=== PATIENT | female | born 1990 | race American Indian/Alaskan Native ===

== ENCOUNTER 2021-01-16 18:56 | Emergency (ER) | payer MEDICAID, MEDICARE ==
[2021-01-16 22:00] VITALS: BP 117/68
[2021-01-16 23:39] LABS: Basophils # (Auto) 0.1 K/mm3 (0.0-0.1); Basophils % (Auto) 0.8 % (0.0-1.8); Eosinophils # (Auto) 0.1 K/mm3 (0.0-0.4); Eosinophils % (Auto) 1.7 % (0.0-4.3); Hematocrit 38.3 % (30.3-42.9); Hemoglobin 13.1 gm/dl (10.1-14.3); Lymphocytes # (Auto) 2.9 K/mm3 (1.2-5.4); Lymphocytes % (Auto) 40.5 % (13.4-35.0); Mean Corpuscular HGB Conc 34 % (30-34); Mean Corpuscular Volume 88 fl (79-97); Monocytes # (Auto) 0.5 K/mm3 (0.0-0.8); Monocytes % (Auto) 6.8 % (0.0-7.3); Platelet Count 277 K/mm3 (140-440); Red Blood Count 4.37 M/mm3 (3.65-5.03); Red Cell Distribution Width 14.3 % (13.2-15.2)
[2021-01-16 23:58] LABS: Bilirubin,Urine NEG (Negative); Blood,Urine LG (Negative); Color,Urine Yellow (Yellow); Mucus,Urine FEW /HPF; Protein,Urine <15 mg/dL mg/dL (Negative); Urobilinogen,Urine < 2.0 mg/dL (<2.0)
[2021-01-17 00:02] LABS: Alanine Aminotransferase 15 units/L (7-56); Blood Urea Nitrogen 6 mg/dL (7-17); Calcium 8.8 mg/dL (8.4-10.2); Hemolysis Index 10
[2021-01-17 00:07] LABS: Amphetamine Screen,Urine PRESUMPTIVE NEGATIVE; Benzodiazepines Screen,Urine PRESUMPTIVE NEGATIVE; Cannabinoid Screen,Urine PRESUMPTIVE POSITIVE; Cocaine Screen,Urine PRESUMPTIVE NEGATIVE; Methadone Screen,Urine PRESUMPTIVE NEGATIVE; Opiate Screen,Urine PRESUMPTIVE NEGATIVE
[2021-01-17 00:21] LABS: BUN/Creatinine Ratio 10
--- NOTE | 2021-01-17 00:53 | Emergency Department Report ---
ED Medical Clearance HPI - General Chief complaint: Medical Clearance Stated complaint: LAB WORK FOR MEDICAL CLEARENCE ONLY Time Seen by Provider: 01/16/21 23:08 Source: patient Mode of arrival: Ambulatory - History of Present Illness Initial comments: 28-year-old [place]kin[place] female with past medical history of PTSD, manic depression, bipolar disorder presents emergency department seeking readmission and to review blood work. Patient was just released on January 12 and when she got onto her family felt that she may need to be admitted again for secondary treatment. Ms. Barnett reports that they had gone through the [facility]olds and had agreed but she presents to the ED for medical clearance. MD Complaint: medical clearance request -: Gradual Reason for Medical Clearance: psychiatric condition Alledged Intoxication: No Compliant with Home Medications: No Traumatic Symptoms: denies traumatic injury Home medications: Home Medications Medication Instructions Recorded Confirmed Last Taken Bentyl 70 mg PO QID 09/19/18 09/19/18 09/19/18 Gabapentin 600 mg PO TID 09/19/18 09/19/18 09/19/18 Zoloft 100 mg PO DAILY 09/19/18 09/19/18 09/19/18 Previous Rx's Medication Instructions Recorded Last Taken Type HYDROcodone/ACETAMINOPHEN [Lortab 473 ml PO TID PRN 7 Days #100 09/19/18 Unknown Rx 10 mg-300 mg per 15 ML ORAL LIQ] solution Omeprazole/Sodium Bicarbonate 1 each PO DAILY 30 Days #30 capsule 09/19/18 Unknown Rx [Omeprazole-Bicarb 20-1,100 Cap] Allergies/Adverse reactions: Allergies Allergy/AdvReac Type Severity Reaction Status Date / Time Latex, Natural Rubber AdvReac Rash Verified 09/19/18 11:22 ED Review of Systems ROS: Stated complaint: LAB WORK FOR MEDICAL CLEARENCE ONLY Other details as noted in HPI Comment: All other systems reviewed and negative ED Past Medical Hx - Past Medical History Hx Hypertension: No Hx Heart Attack/AMI: No Hx GERD: Yes Hx Liver Disease: No Hx Renal Disease: No Hx Seizures: No Hx Asthma: No - Surgical History Past Surgical History?: No Hx Cholecystectomy: Yes - Social History Smoking Status: Unknown if ever smoked Substance Use Type: None - Medications Home Medications: Home Medications Medication Instructions Recorded Confirmed Last Taken Type Bentyl 70 mg PO QID 09/19/18 09/19/18 09/19/18 History Gabapentin 600 mg PO TID 09/19/18 09/19/18 09/19/18 History HYDROcodone/ACETAMINOPHEN [Lortab 473 ml PO TID PRN 7 Days #100 09/19/18 Unknown Rx 10 mg-300 mg per 15 ML ORAL LIQ] solution Omeprazole/Sodium Bicarbonate 1 each PO DAILY 30 Days #30 capsule 09/19/18 Unknown Rx [Omeprazole-Bicarb 20-1,100 Cap] Zoloft 100 mg PO DAILY 09/19/18 09/19/18 09/19/18 History ED Physical Exam - General Limitations: No Limitations General appearance: alert, in no apparent distress - Head Head exam: Present: atraumatic, normocephalic - Eye Eye exam: Present: normal appearance, PERRL, EOMI Pupils: Present: normal accommodation - ENT ENT exam: Present: normal exam, normal orophraynx, mucous membranes moist, TM's normal bilaterally - Neck Neck exam: Present: normal inspection - Respiratory Respiratory exam: Present: normal lung sounds bilaterally. Absent: respiratory distress - Cardiovascular Cardiovascular Exam: Present: regular rate, normal rhythm. Absent: systolic murmur, diastolic murmur, rubs, gallop - GI/Abdominal GI/Abdominal exam: Present: soft, normal bowel sounds - Extremities Exam Extremities exam: Present: normal inspection, full ROM, normal capillary refill - Back Exam Back exam: Present: normal inspection. Absent: CVA tenderness (R), CVA tenderness (L) - Neurological Exam Neurological exam: Present: alert, oriented X3, CN II-XII intact - Psychiatric Psychiatric exam: Present: normal affect, normal mood. Absent: anxious, flat affect, manic - Skin Skin exam: Present: warm, dry, intact, normal color. Absent: rash, cyanosis, diaphoretic, erythema ED Course Vital Signs 01/16/21 21:59 Temperature 97.7 F Pulse Rate 61 Respiratory 14 Rate Blood Pressure 117/68 [Left] O2 Sat by Pulse 100 Oximetry ED Medical Decision Making - Lab Data Result diagrams: 01/16/21 22:49 01/16/21 22:49 ED Disposition Clinical Impression: Medical clearance for psychiatric admission Disposition: DC-01 TO HOME OR SELFCARE Is pt being admited?: No Does the pt Need Aspirin: No Condition: Stable Instructions: Medical Screening Exam Additional Instructions: Medical clearance for [place] Referrals: PRIMARY CARE, [Primary Care Provider] - 3-5 Days
== END 2021-01-17 01:00 | disposition home or self-care (01) ==
LOC: ED 18:56
DX: Z04.6 Encounter for general psychiatric examination, requested by authority (principal); K21.9 Gastro-esophageal reflux disease without esophagitis; F31.9 Bipolar disorder, unspecified; Z90.49 Acquired absence of other specified parts of digestive tract; Z91.040 Latex allergy status; Z88.8 Allergy status to other drugs, medicaments and biological substances; Z79.899 Other long term (current) drug therapy
CPT/HCPCS: 36415; 80053; 80307; 80320; 81001; 85025; 87086; 99283; G0480

== ENCOUNTER 2021-01-30 10:46 | Emergency (ER) | payer MEDICARE ==
--- NOTE | 2021-01-30 11:16 | Event Note ---
ED Screening Note Date of service: 01/30/21 Time: 11:14 ED Screening Note: Patient presents to the ER today with complaints of shortness of breath, chest pain, productive cough, wheezing and diarrhea. Onset of her symptoms a couple days ago Patient admits that her roommate was recently sick with URI symptoms. She states that her main concern is for blood clot as she had a PE back in 2016 and was on anticoagulants for a year. She states that they think it could have been related to the control pills that she was taking. He currently has a copper IUD. 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 She was given prescriptions for an inhaler but currently does not have any inhalers. The past medical history significant for anxiety, depression and insomnia. This initial assessment/diagnostic orders/clinical plan/treatment(s) is/are subject to change based on patients health status, clinical progression and re- assessment by fellow clinical providers in the ED. Further treatment and workup at subsequent clinical providers discretion. Patient/guardian urged not to elope from the ED as their condition may be serious if not clinically assessed and managed. Initial orders include: Labs/x-ray x-ray/EKG
[2021-01-30] MEDS ORDERED: IPRATROPIUM/ALBUTEROL SULFATE 3 ML AMPUL.NEB IH ONE (11:24)
[2021-01-30] MEDS ORDERED: methylPREDNISolone Sod Succinate 125 MG/2 ML INJ IV ONE (11:24)
[2021-01-30 12:40] LABS: Basophils # (Auto) 0.1 K/mm3 (0.0-0.1); Basophils % (Auto) 0.7 % (0.0-1.8); Eosinophils % (Auto) 0.3 % (0.0-4.3); Hematocrit 36.9 % (30.3-42.9); Hemoglobin 12.4 gm/dl (10.1-14.3); Lymphocytes # (Auto) 1.8 K/mm3 (1.2-5.4); Lymphocytes % (Auto) 23.6 % (13.4-35.0); Mean Corpuscular HGB Conc 34 % (30-34); Mean Corpuscular Volume 88 fl (79-97); Monocytes # (Auto) 0.3 K/mm3 (0.0-0.8); Monocytes % (Auto) 4.3 % (0.0-7.3); Platelet Count 280 K/mm3 (140-440); Red Cell Distribution Width 14.3 % (13.2-15.2)
[2021-01-30 12:56] LABS: Alanine Aminotransferase 13 units/L (7-56); Blood Urea Nitrogen 6 mg/dL (7-17); Calcium 9.1 mg/dL (8.4-10.2); Hemolysis Index 23
--- NOTE | 2021-01-30 12:58 | Emergency Department Report ---
- General Chief Complaint: Dyspnea/Respdistress Stated Complaint: CHEST PAIN, SOB, CANNOT SMELL Time Seen by Provider: 01/30/21 12:33 Source: patient Mode of arrival: Ambulatory Limitations: No Limitations - History of Present Illness Initial Comments: Patient presents to the ER today with complaints of shortness of breath, chest pain, productive cough, wheezing and diarrhea. Onset of her symptoms a couple days ago Patient admits that her roommate was recently sick with URI symptoms. She states that her main concern is for blood clot as she had a PE back in 2016 and was on anticoagulants for a year. She states that they think it could have been related to the control pills that she was taking. He currently has a copper IUD. 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 She was given prescriptions for an inhaler but currently does not have any inhalers. The past medical history significant for anxiety, depression and insomnia. MD Complaint: cough, nasal congestion Onset/Timin -: days(s) Severity: moderate Quality: aching Improves With: nothing Worsens With: nothing Context: sick contacts Associated Symptoms: denies other symptoms, rhinorrhea, nasal congestion, cough, chest pain, diarrhea. denies: fever, chills, myalgias - Related Data Home Medications Medication Instructions Recorded Confirmed Last Taken Bentyl 70 mg PO QID 09/19/18 09/19/18 09/19/18 Gabapentin 600 mg PO TID 09/19/18 09/19/18 09/19/18 Zoloft 100 mg PO DAILY 09/19/18 09/19/18 09/19/18 Previous Rx's Medication Instructions Recorded Last Taken Type HYDROcodone/ACETAMINOPHEN [Lortab 473 ml PO TID PRN 7 Days #100 09/19/18 Unknown Rx 10 mg-300 mg per 15 ML ORAL LIQ] solution Omeprazole/Sodium Bicarbonate 1 each PO DAILY 30 Days #30 capsule 09/19/18 Unknown Rx [Omeprazole-Bicarb 20-1,100 Cap] Levalbuterol Tartrate 1 puff IH QID PRN #1 hfa.aer.ad 01/30/21 Unknown Rx [Levalbuterol Tartrate Hfa] predniSONE [Deltasone] 40 mg PO QDAY 5 Days #10 tab 01/30/21 Unknown Rx Allergies Allergy/AdvReac Type Severity Reaction Status Date / Time Latex, Natural Rubber AdvReac Rash Verified 09/19/18 11:22 ED Review of Systems ROS: Stated complaint: CHEST PAIN, SOB, CANNOT SMELL Other details as noted in HPI Comment: All other systems reviewed and negative ED Past Medical Hx - Past Medical History Previous Medical History?: Yes Hx Hypertension: No Hx Heart Attack/AMI: No Hx GERD: Yes Hx Liver Disease: No Hx Renal Disease: No Hx Seizures: No Hx Asthma: No Additional medical history: PE - Surgical History Past Surgical History?: Yes Hx Cholecystectomy: Yes - Social History Smoking Status: Current Every Day Smoker Substance Use Type: None - Medications Home Medications: Home Medications Medication Instructions Recorded Confirmed Last Taken Type Bentyl 70 mg PO QID 09/19/18 09/19/18 09/19/18 History Gabapentin 600 mg PO TID 09/19/18 09/19/18 09/19/18 History HYDROcodone/ACETAMINOPHEN [Lortab 473 ml PO TID PRN 7 Days #100 09/19/18 Unknown Rx 10 mg-300 mg per 15 ML ORAL LIQ] solution Omeprazole/Sodium Bicarbonate 1 each PO DAILY 30 Days #30 capsule 09/19/18 Unknown Rx [Omeprazole-Bicarb 20-1,100 Cap] Zoloft 100 mg PO DAILY 09/19/18 09/19/18 09/19/18 History Levalbuterol Tartrate 1 puff IH QID PRN #1 hfa.aer.ad 01/30/21 Unknown Rx [Levalbuterol Tartrate Hfa] predniSONE [Deltasone] 40 mg PO QDAY 5 Days #10 tab 01/30/21 Unknown Rx ED Physical Exam - General Limitations: No Limitations General appearance: alert, in no apparent distress - Head Head exam: Present: atraumatic, normocephalic - Eye Eye exam: Present: normal appearance - ENT ENT exam: Present: normal exam, normal external ear exam - Neck Neck exam: Present: normal inspection, full ROM - Respiratory Respiratory exam: Present: wheezes - Cardiovascular Cardiovascular Exam: Present: normal rhythm, tachycardia. Absent: systolic murmur, diastolic murmur, rubs, gallop - GI/Abdominal GI/Abdominal exam: Present: soft. Absent: distended - Extremities Exam Extremities exam: Present: normal inspection, full ROM - Back Exam Back exam: Present: normal inspection, full ROM - Neurological Exam Neurological exam: Present: alert, oriented X3 - Psychiatric Psychiatric exam: Present: anxious - Skin Skin exam: Present: warm, dry, intact, normal color. Absent: rash ED Course Vital Signs 01/30/21 01/30/21 11:02 12:10 Temperature 98.9 F Pulse Rate 98 H 87 Respiratory 14 20 Rate Blood Pressure 162/78 O2 Sat by Pulse 99 99 Oximetry - Reevaluation(s) Reevaluation #1: 01/30/21 13:42 Patient reports that she feels much better after her treatment. Patient lungs are clear. ED Medical Decision Making - Lab Data Result diagrams: 01/30/21 12:09 01/30/21 12:09 - EKG Data EKG shows normal: sinus rhythm Rate: normal - EKG Data Interpretation: normal EKG - Medical Decision Making Patient presents to the ER today with complaints of shortness of breath, chest pain, productive cough, wheezing and diarrhea. Onset of her symptoms a couple days ago while she is at [facility]. Patient admits that her roommate was recently sick with URI symptoms. She states that her main concern is for blood clot as she had a PE back in 2015 and was on anticoagulants for a year. She states that they think it could have been related to the control pills that she was taking. He currently has a copper IUD. 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 She was given prescriptions for an inhaler but currently does not have any inhalers. The past medical history significant for anxiety, depression and insomnia. CBC CMP urine test D-dimer, troponin, albuterol breathing treatment PERC Rule for Pulmonary Embolism 1 criteria If any criteria are positive, the PERC rule cannot be used to rule out PE in this patient. Management In the setting of a low-risk patient who is not PERC negative, the physician should consider a d-dimer for further evaluation. If the d-dimer is negative, and clinical gestalt determines a pre-test probability is <15% then, the patient does not require further testing for PE. If the d-dimer is positive, further testing such as a CT-angiography or V/Q scan should be pursued. Patient's lungs are clear. She reports she feels much better. Patient will be discharged back to [facility] with an inhaler and prednisone. Patient is encouraged to increase her fluids. And follow-up with a primary care provider. Critical care attestation.: If time is entered above; I have spent that time in minutes in the direct care of this critically ill patient, excluding procedure time. ED Disposition Clinical Impression: Wheezing on auscultation, Anxiety and depression Disposition: DC- TO HOME OR SELFCARE Is pt being admited?: No Does the pt Need Aspirin: No Condition: Stable Instructions: Cough, Adult, [id number] Additional Instructions: Labs are stable no elevation of D-dimer. Will discharge you home on inhaler and prednisone to take. Tylenol or ibuprofen for any pain. Follow-up with a primary care provider any further concerns. Prescriptions: predniSONE [Deltasone] 40 mg PO QDAY 5 Days #10 tab Levalbuterol Tartrate [Levalbuterol Tartrate Hfa] 1 puff IH QID PRN #1 hfa.aer.ad PRN Reason: Wheezing Referrals: PRIMARY CARE, [Primary Care Provider] - 3-5 Days ADRIEN FITZGERALD MD [Staff Physician] - 3-5 Days
[2021-01-30 13:18] LABS: BUN/Creatinine Ratio 10
[2021-01-30 14:05] VITALS: BP 127/94
--- NOTE | 2021-02-01 19:06 | Electrocardiograph Report ---
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
== END 2021-01-30 13:55 | disposition home or self-care (01) ==
LOC: ED 10:46
DX: R06.2 Wheezing (principal); F41.9 Anxiety disorder, unspecified; F32.9 Major depressive disorder, single episode, unspecified; K21.9 Gastro-esophageal reflux disease without esophagitis; F17.200 Nicotine dependence, unspecified, uncomplicated; Z90.49 Acquired absence of other specified parts of digestive tract; Z79.899 Other long term (current) drug therapy; Z91.040 Latex allergy status; Z88.8 Allergy status to other drugs, medicaments and biological substances
CPT/HCPCS: 36415; 80053; 84484; 84703; 85025; 85379; 93005; 94640; 96374; 99283; J2930; 94644